=== PATIENT | female | born 1965 | race Two or more races ===

== ENCOUNTER 2019-06-04 13:17 | Inpatient (IN) | payer MEDICAID ==
[~2019-06-04] VITALS: Ht 162.6 cm; Wt 79.8 kg
--- NOTE | 2019-06-04 13:40 | NUR ---
ED Nurse Note: Pt walked in from home c/o throat pain/shortness of breath/vomiting x yesterday around 1600. Vital signs stable as documented.
[2019-06-04 13:47] VITALS: BP 150/86
--- NOTE | 2019-06-04 14:11 | NUR ---
ED Nurse Note: Pt in radiology
--- NOTE | 2019-06-04 14:57 | Diagnostic Imaging Report ---
Indication: Throat pain, suspected foreign body, shortness of breath, history of impacted swallowed chicken bone. Technique: Noncontrast spiral acquisitions obtained through the neck. No IV contrast utilized, reason not stated. Multiplanar reconstructions were generated. Total dose length product 364 mGycm. CTDIvol(s) 14 mGy. Radiation dose was minimized using automated exposure control Comparison: none Findings: Lack of IV contrast limits assessment. The nasopharynx, oropharynx, hypopharynx, larynx, and trachea are all unremarkable. However, in the upper mediastinum, there is a small focus of extraluminal gas projecting lateral to the right side of the esophagus and posterior trachea. No tracheal wall defect is demonstrated, however. This gas pocket measures approximately 14 x 6 x 9 mm. There is also a suggestion of a tiny extraluminal gas pocket adjacent to the esophagus more distally, at the level of the aortic arch. This measures only about 3 mm in diameter, is also located on the right side. No evidence of ingested impacted foreign body such as a chicken bone demonstrated. The included lung apices are clear. There is no prevertebral soft tissue swelling demonstrated. No definite focal fluid collection to suggest abscess. However, evaluation for such is very limited in the absence of IV contrast administration. No cervical mass or adenopathy demonstrated. Unremarkable salivary glands. There is evidence of multiple prior dental extractions as well as some possible dental caries. There is mild degenerative cervical spondylosis noted. The visualized intracranial structures are unremarkable. Impression: 14.6 x 9 mm pocket of extraluminal gas in the upper mediastinum adjacent to the trachea. Second tiny 3 mm pocket adjacent to the esophagus more distally. Given stated clinical history, this raises concern for prior esophageal microperforation. No definite radiopaque foreign body demonstrated in the upper aerodigestive tract. No definite cervical or mediastinal abscess. Note, however, that evaluation for such is severely limited in the absence of IV contrast demonstration Evidence of dental disease Findings/by phone with nurse bobby Samuels in the emergency room at the time of interpretation The CT scanner at [facility] is accredited by the [employer] and the scans are performed using protocols designed to limit radiation exposure to as low as reasonably achievable to attain images of sufficient resolution adequate for diagnostic evaluation.
[2019-06-04] MEDS ORDERED: Clindamycin 600mg 50 ML IVPB ONE (16:00)
[2019-06-04] MEDS ORDERED: Vancomycin 1.5 GM in NS 275 ML IVPB ONE (16:00)
[2019-06-04] MEDS ORDERED: Barium EZ HD MC PRN (16:00)
[2019-06-04] MEDS ORDERED: Barium EZ Gas II granules MC PRN (16:00)
[2019-06-04] MEDS ORDERED: Varibar Thin Liquid powder 148gm MC PRN (16:00)
--- NOTE | 2019-06-04 16:56 | Emergency Room Report ---
History of Present Illness General Chief Complaint: General Complaint Source: Patient (Esther Sanches) Present Illness HPI 53-year-old female with no known significant medical history here complaining of 1 day of having a chicken bone stuck in her throat. Patient with told urgent care earlier today prior to coming here and soft tissue neck x-ray was done the patient was told that the fishbone has been sideways and horizontal. Patient is in no distress, no drooling noted, no difficulty breathing or stridor noted. Patient speaking in full sentences, with stable vital signs. Complains of minimal gagging. Has been able to intake oral hydration as well as solid food however reports that she vomited 2 few times after eating tomato juice. Does not know what they are to read vomiting was secondary to tomato juice or possible blood. Denies fever and chills, chest pain, shortness of breath, palpitation, headache and dizziness at this time. Denies all other associated symptoms. Patient is currently not on any blood thinners. (Esther Sanches) Allergies: Coded Allergies: PENICILLINS (Verified Allergy, Unknown, 06/04/19) Patient History Past Medical History: see triage record Past Surgical History: unable to obtain Pertinent Family History: none Now: No Immunizations: UTD Reviewed Nursing Documentation: PMH: Agreed; PSxH: Agreed (Esther Sanches) Nursing Documentation-PMH Past Medical History: No History, Except For (Esther Sanches) Review of Systems All Other Systems: negative except mentioned in HPI (Esther Sanches) Physical Exam Vital Signs Date Time Temp Pulse Resp B/P (MAP) Pulse Ox O2 Delivery O2 Flow Rate FiO2 06/04/19 13:26 98.1 84 16 150/86 (107) 94 Sp02 EP Interpretation: reviewed, normal General Appearance: no apparent distress, alert, GCS 15, non-toxic Head: normocephalic, atraumatic Eyes: bilateral eye normal inspection, bilateral eye PERRL ENT: hearing grossly normal, normal pharynx, no angioedema, normal voice Neck: full range of motion, supple, thyroid normal, no meningismus, no bony tend, no carotid bruits, supple/symm/no masses Respiratory: chest non-tender, lungs clear, normal breath sounds, speaking full sentences Cardiovascular #1: regular rate, rhythm, no edema, no murmur Cardiovascular #2: 2+ carotid (R), 2+ carotid (L) Gastrointestinal: normal bowel sounds, non tender, soft, non-distended, no guarding, no rebound Genitourinary: no CVA tenderness Musculoskeletal: back normal, no calf tenderness Neurologic: alert, oriented Psychiatric: judgement/insight normal, memory normal, mood/affect normal, no suicidal/homicidal ideation Skin: no rash Lymphatic: no adenopathy (Esther Sanches) Procedures Critical Care Time Critical Care Time 50 minutes for critical findings concerning for deterioration and possible speaking to multiple consultants and outside resources not including any procedural time (Karey Weeks DO) Medical Decision Making PA Attestation All my diagnosis and treatment plans were reviewed ad discussed with my supervising physician Dr. Weeks (Esther Sanches) Diagnostic Impression: Primary Impression: Esophageal abnormality Additional Impression: Esophageal perforation ER Course 53-year-old female with no known significant medical history here complaining of 1 day of having a chicken bone stuck in her throat. Patient with told urgent care earlier today prior to coming here and soft tissue neck x-ray was done the patient was told that the fishbone has been sideways and horizontal. Patient is in no distress, no drooling noted, no difficulty breathing or stridor noted. Patient speaking in full sentences, with stable vital signs. Complains of minimal gagging. Has been able to intake oral hydration as well as solid food however reports that she vomited 2 few times after eating tomato juice. Does not know what they are to read vomiting was secondary to tomato juice or possible blood. Denies fever and chills, chest pain, shortness of breath, palpitation, headache and dizziness at this time. Denies all other associated symptoms. Patient is currently not on any blood thinners. Ddx considered but are not limited to: Esophageal perforation, esophageal irritation, tracheal perforation, respiratory distress Vital signs: are WNL, pt. is afebrile H&PE are most consistent with esophageal perforation ORDERS: CT neck soft tissue, CBC, CMP, PT PTT, chest x-ray ED INTERVENTIONS: None required at this time. Patient was admitted with diagnosis of esophageal perforation to under supervision of : Desi pt stable at time of admission (Esther Sanches) ER Course Please refer to the initial note for the history exam and presentation I was involved in the case early on in the work-up patient has CT imaging obtained which shows concerning findings of possible Microperforation With these findings [facility] was contacted I spoke to the, thoracic CT specialist who recommends transfer however Transfer center reports that they have no capacity and were not able to accept the patient On the recommendations patient was started on IV antibiotics and a esophagram was initiated Radiology does not see any obvious extravasation Patient continues on IV hydration and antibiotics contact is made again with [facility] and they report Continued inability to accept the patient [facility] was also contacted also reported no capacity for acceptance, Patient requires further evaluation and in-house surgical specialty consulted in the ER At this time no obvious signs of perforation and patient will continue with the care after prolonged stay in the emergency room Patient is requested for inpatient care with continued attempts of transfer for higher level of care secondary to the need for specialty consultation At the time of this dictation we are still not able to appropriately disposition the patient to higher level of care. In the best interest of the patient specialty consultation was made in the ER patient will be transferred to inpatient status and continue to attempt transfer Labs Test 06/04/19 16:30 White Blood Count 8.4 K/UL (4.8-10.8) Red Blood Count 5.04 M/UL (4.20-5.40) Hemoglobin 16.4 G/DL (12.0-16.0) Hematocrit 47.1 % (37.0-47.0) Mean Corpuscular Volume 93 FL (80-99) Mean Corpuscular Hemoglobin 32.6 PG (27.0-31.0) Mean Corpuscular Hemoglobin Concent 34.9 G/DL (32.0-36.0) Red Cell Distribution Width 10.5 % (11.6-14.8) Platelet Count 197 K/UL (150-450) Mean Platelet Volume 9.6 FL (6.5-10.1) Neutrophils (%) (Auto) 59.3 % (45.0-75.0) Lymphocytes (%) (Auto) 31.4 % (20.0-45.0) Monocytes (%) (Auto) 6.5 % (1.0-10.0) Eosinophils (%) (Auto) 2.1 % (0.0-3.0) Basophils (%) (Auto) 0.8 % (0.0-2.0) Prothrombin Time 11.6 SEC (9.30-11.50) Prothromb Time International Ratio 1.1 (0.9-1.1) Activated Partial Thromboplast Time 29 SEC (23-33) Sodium Level 143 MMOL/L (136-145) Potassium Level 4.4 MMOL/L (3.5-5.1) Chloride Level 109 MMOL/L (98-107) Carbon Dioxide Level 19 MMOL/L (21-32) Anion Gap 15 mmol/L (5-15) Blood Urea Nitrogen 12 mg/dL (7-18) Creatinine 0.7 MG/DL (0.55-1.30) Estimat Glomerular Filtration Rate > 60 mL/min (>60) Glucose Level 103 MG/DL (74-106) Calcium Level 9.1 MG/DL (8.5-10.1) Total Bilirubin 0.6 MG/DL (0.2-1.0) Aspartate Amino Transf (AST/SGOT) 37 U/L (15-37) Alanine Aminotransferase (ALT/SGPT) 21 U/L (12-78) Alkaline Phosphatase 86 U/L (46-116) Total Protein 8.1 G/DL (6.4-8.2) Albumin 3.9 G/DL (3.4-5.0) Globulin 4.2 g/dL Albumin/Globulin Ratio 0.9 (1.0-2.7) (Karey Weeks DO) Chest X-Ray Diagnostic Results Chest X-Ray Diagnostic Results : Chest X-Ray Ordered: Yes # of Views/Limited/Complete: 1 View Indication: Other EP Interpretation: Yes PA Xray: Interpretation reviewed, by supervising MD, and agrees with findings. Interpretation: no consolidation, no effusion, no pneumothorax, no acute cardiopulmonary disease Impression: No acute disease Electronically Signed by: Esther Cortez PA-C (Esther Sanches) Chest X-Ray Diagnostic Results : Chest X-Ray Ordered: Yes # of Views/Limited/Complete: 1 View Indication: Chest Pain EP Interpretation: Yes Interpretation: no consolidation, no effusion, no pneumothorax Impression: No acute disease Electronically Signed by: Karey Weeks DO (Karey Weeks DO) Other X-Ray Diagnostic Results Other X-Ray Diagnostic Results : X-Ray ordered: Soft tissue neck # of Views/Limited Vs Complete: 2 View Indication: Pain EP Interpretation: Yes Interpretation: no dislocation, no soft tissue swelling, no fractures Impression: No acute disease Electronically Signed by: Karey Weeks DO (Karey Weeks DO) CT/MRI/US Diagnostic Results CT/MRI/US Diagnostic Results : Imaging Test Ordered: CT soft tissue neck Impression Possible esophageal and tracheal perforation (Esther Sanches) CT/MRI/US Diagnostic Results : Impression CT neckImpression: 14.6 x 9 mm pocket of extraluminal gas in the upper mediastinum adjacent to the trachea. Second tiny 3 mm pocket adjacent to the esophagus more distally. Given stated clinical history, this raises concern for prior esophageal microperforation. No definite radiopaque foreign body demonstrated in the upper aerodigestive tract. No definite cervical or mediastinal abscess. Note, however, that evaluation for such is severely limited in the absence of IV contrast demonstration Evidence of dental disease (Karey Weeks DO) Last Vital Signs Date Time Temp Pulse Resp B/P (MAP) Pulse Ox O2 Delivery O2 Flow Rate FiO2 06/04/19 13:47 98.1 94 16 150/86 94 (Esther Sanches) Status: improved (Karey Weeks DO) Disposition: ADMITTED INPATIENT Condition: Serious Referrals: NOT CHOSEN IPA/,REFERRING (PCP) Esther Sanches Jun 04, 2019 16:56 Karey Weeks DO Jun 04, 2019 19:03
[2019-06-04 17:04] LABS: BASOPHILS % (AUTO) 0.8 % (0.0-2.0); EOSINOPHILS % (AUTO) 2.1 % (0.0-3.0); HEMATOCRIT 47.1 % (37.0-47.0); HEMOGLOBIN 16.4 G/DL (12.0-16.0); LYMPHOCYTES % (AUTO) 31.4 % (20.0-45.0); MEAN CORPUSCULAR VOLUME 93 FL (80-99); MONOCYTES % (AUTO) 6.5 % (1.0-10.0); NEUTROPHILS % (AUTO) 59.3 % (45.0-75.0); PLATELET COUNT 197 K/UL (150-450); RED BLOOD COUNT 5.04 M/UL (4.20-5.40); RED CELL DISTRIBUTION WIDTH 10.5 % (11.6-14.8); WHITE BLOOD COUNT 8.4 K/UL (4.8-10.8)
[2019-06-04 17:23] LABS: ANION GAP 15 mmol/L (5-15); BLOOD UREA NITROGEN 12 mg/dL (7-18); CALCIUM 9.1 MG/DL (8.5-10.1); CARBON DIOXIDE 19 MMOL/L (21-32); CHLORIDE 109 MMOL/L (98-107); CREATININE 0.7 MG/DL (0.55-1.30); POTASSIUM 4.4 MMOL/L (3.5-5.1); SODIUM 143 MMOL/L (136-145)
[2019-06-04 17:24] LABS: INR 1.1 (0.9-1.1)
[2019-06-04 17:25] VITALS: BP 142/89
--- NOTE | 2019-06-04 17:25 | Diagnostic Imaging Report ---
Indication: History of throat pain and foreign body ingestion Technique: One view of the chest Comparison: none Findings: Lungs and pleural spaces are clear. The heart size is upper limits of normal. The aorta is somewhat ectatic. Impression: Negative
--- NOTE | 2019-06-04 17:26 | Diagnostic Imaging Report ---
Indication: History of foreign body ingestion, sore throat Technique: 2 views of the neck with soft tissue technique Comparison: none Findings: No prevertebral soft tissue swelling. No radiopaque foreign body demonstrated. No epiglottic swelling, glottic narrowing, or hypopharyngeal distention. The bones are grossly unremarkable Impression: Negative
[2019-06-04 17:28] LABS: ALANINE AMINOTRANSFERASE 21 U/L (12-78); ALBUMIN 3.9 G/DL (3.4-5.0); ALBUMIN/GLOBULIN RATIO 0.9 (1.0-2.7); ALKALINE PHOSPHATASE 86 U/L (46-116); ASPARTATE AMINO TRANSFERASE 37 U/L (15-37); BILIRUBIN,TOTAL 0.6 MG/DL (0.2-1.0)
--- NOTE | 2019-06-04 17:48 | Diagnostic Imaging Report ---
INDICATION: History of lodged chicken bone, evidence of possible esophageal perforation on recent neck CT TECHNIQUE: Patient ingested water-soluble contrast and live fluoroscopic imaging was performed in the region of abnormality demonstrated on recent neck CT Fluoroscopy time: 54.1 seconds Total dose: 0.87758 mGym2 Total number of images: 3 COMPARISON: Neck CT of earlier the same day FINDINGS: Exam is very limited, due to inability of the patient to cooperate optimally, constant moving, and retching immediately after swallowing. Normal esophageal motility is demonstrated. No gross contrast extravasation is demonstrated. IMPRESSION: Very limited exam. No definite contrast extravasation demonstrated
--- NOTE | 2019-06-04 18:31 | Consultation ---
History of Present Illness General Date patient seen: Jun 04, 2019 Reason for Hospitalization: General Complaint Present Illness HPI This is a very pleasant 53-year-old female who presents [facility] recently after swallowing a chicken bone concern for complication complaining of pain, nausea, emesis. Patient states over the last 24 hours the pain has become more significant and she is unable to hold down any food and continues to have intermittent nausea and emesis. Pain is described as a sharp 8 out of 10 pain in the neck and feels as if the chicken bone is still stuck there. CT ordered and as below. Surgery called to evaluate and assist with care. Patient seen in the emergency department, patient evaluated, chart reviewed. Findings were discussed with the patient and her daughters at bedside in detail and imaging findings labs and vitals were discussed as well as the etiology of the radiological findings and care plan. Allergies: Coded Allergies: PENICILLINS (Verified Allergy, Unknown, 06/04/19) Patient History History Provided By: Patient, Family Member, Medical Record, PMD Healthcare decision maker Resuscitation status Advanced Directive on File Past Medical/Surgical History Past Medical/Surgical History: (1) Esophageal tear (2) Esophageal perforation Review of Systems Review of Symptoms General ROS: no weight loss or fever Psychological ROS: no depression or mood changes, no memory loss Ophthalmic ROS: no visual changes or eye irritation ENT ROS: no nasal congestion, hearing loss, dizziness throat pain Allergy and Immunology ROS: no allergic symptoms or urticaria Hematological and Lymphatic ROS: no swollen glands, unusual bleeding or bruising Endocrine ROS: no polyuria, polydipsia, weight changes, temperature intolerance Respiratory ROS: no cough, shortness of breath, or wheezing Cardiovascular ROS: no chest pain or dyspnea on exertion Gastrointestinal ROS: denies abdominal pain, bright red blood in stool. Musculoskeletal ROS: no myalgias or arthralgias Neurological ROS: no TIA or stroke symptoms Dermatological ROS: no new or changing skin lesions, rashes or pruritis Physical Exam Physical Exam General appearance: alert, cooperative, no distress, appears stated age Head: Normocephalic, without obvious abnormality, atraumatic Eyes: conjunctivae/corneas clear. PERRL, EOM's intact. Fundi benign Throat: Lips, mucosa, and tongue normal. Teeth and gums normal tender on palpation of the neck Neck: supple, symmetrical, trachea midline, no adenopathy, thyroid: not enlarged, symmetric, no tenderness/mass/nodules, no carotid bruit and no JVD Lungs: clear to auscultation bilaterally Heart: regular rate and rhythm, S1, S2 normal, no murmur, click, rub or gallop Abdomen: soft, non-tender. Bowel sounds normal. No masses, no organomegaly Extremities: extremities normal, atraumatic, no cyanosis or edema Pulses: 2+ and symmetric Skin: Skin color, texture, turgor normal. No rashes or lesions Neurologic: Grossly normal Last 24 Hour Vital Signs Date Time Temp Pulse Resp B/P (MAP) Pulse Ox O2 Delivery O2 Flow Rate FiO2 06/04/19 13:47 98.1 94 16 150/86 94 06/04/19 13:47 84 16 06/04/19 13:26 98.1 84 16 150/86 (107) 94 Laboratory Tests Test 06/04/19 16:30 White Blood Count 8.4 K/UL (4.8-10.8) Red Blood Count 5.04 M/UL (4.20-5.40) Hemoglobin 16.4 G/DL (12.0-16.0) H Hematocrit 47.1 % (37.0-47.0) H Mean Corpuscular Volume 93 FL (80-99) Mean Corpuscular Hemoglobin 32.6 PG (27.0-31.0) H Mean Corpuscular Hemoglobin Concent 34.9 G/DL (32.0-36.0) Red Cell Distribution Width 10.5 % (11.6-14.8) L Platelet Count 197 K/UL (150-450) Mean Platelet Volume 9.6 FL (6.5-10.1) Neutrophils (%) (Auto) 59.3 % (45.0-75.0) Lymphocytes (%) (Auto) 31.4 % (20.0-45.0) Monocytes (%) (Auto) 6.5 % (1.0-10.0) Eosinophils (%) (Auto) 2.1 % (0.0-3.0) Basophils (%) (Auto) 0.8 % (0.0-2.0) Prothrombin Time 11.6 SEC (9.30-11.50) H Prothromb Time International Ratio 1.1 (0.9-1.1) Activated Partial Thromboplast Time 29 SEC (23-33) Sodium Level 143 MMOL/L (136-145) Potassium Level 4.4 MMOL/L (3.5-5.1) Chloride Level 109 MMOL/L (98-107) H Carbon Dioxide Level 19 MMOL/L (21-32) L Anion Gap 15 mmol/L (5-15) Blood Urea Nitrogen 12 mg/dL (7-18) Creatinine 0.7 MG/DL (0.55-1.30) Estimat Glomerular Filtration Rate > 60 mL/min (>60) Glucose Level 103 MG/DL (74-106) Calcium Level 9.1 MG/DL (8.5-10.1) Total Bilirubin 0.6 MG/DL (0.2-1.0) Aspartate Amino Transf (AST/SGOT) 37 U/L (15-37) Alanine Aminotransferase (ALT/SGPT) 21 U/L (12-78) Alkaline Phosphatase 86 U/L (46-116) Total Protein 8.1 G/DL (6.4-8.2) Albumin 3.9 G/DL (3.4-5.0) Globulin 4.2 g/dL Albumin/Globulin Ratio 0.9 (1.0-2.7) L Height (Feet): 5 Height (Inches): 5.00 Weight (Pounds): 180 Medications Current Medications Medications (Trade) Dose Ordered Sig/Glenn Route PRN Reason Start Time Stop Time Status Last Admin Dose Admin Barium Sulfate (Barium EZ Gas II) 1 ea NOW PRN Radiology Procedure 06/04/19 16:00 06/07/19 15:58 Barium Sulfate (Barium EZ HD) 1 ea NOW PRN Radiology Procedure 06/04/19 16:00 06/07/19 15:58 Barium Sulfate (Varibar Thin Liquid powder) 148 gm NOW PRN Radiology Procedure 06/04/19 16:00 06/07/19 15:58 Assessment/Plan Problem List: (1) Esophageal tear Assessment & Plan: This is a 53-year-old female who presented to the emergency department [facility] complaining of throat pain nausea vomiting after swallowing a chicken bone. Feels as if it still stuck in her throat and is unable to tolerate oral intake and continues to throw up and has intermittent nausea. States pain in the neck. Afebrile, hemodynamic is stable, labs okay CT as below Patient is currently stable but does have tenderness in the neck as a concerning CT. She is unable to tolerate oral intake and has intermittent episodes of nausea and vomiting. She had a esophagram which did not show any extravasation. Given patient's etiology and above findings strongly recommend observation. In the event of complications such as delayed esophageal perforation infection mediastinitis, etc. patient would strongly benefit at a center with thoracic capabilities. Unfortunately we do not have a throat surgeon foreign law consultant here and limitations on chest surgery. Higher level of care would be strongly recommended in the event patient's condition deteriorates though unlikely. If unable to transfer patient must be admitted here for observation care and management. N.p.o., IV fluids, IV antibiotics. Will follow with serial examinations. Will be very difficult to manage in the event complicated but will be available to assist to the best of my capabilities. Thank you for let me participate in patient's care The nasopharynx, oropharynx, hypopharynx, larynx, and trachea are all unremarkable. However, in the upper mediastinum, there is a small focus of extraluminal gas projecting lateral to the right side of the esophagus and posterior trachea. No tracheal wall defect is demonstrated, however. This gas pocket measures approximately 14 x 6 x 9 mm. There is also a suggestion of a tiny extraluminal gas pocket adjacent to the esophagus more distally, at the level of the aortic arch. This measures only about 3 mm in diameter, is also located on the right side. No evidence of ingested impacted foreign body such as a chicken bone demonstrated. The included lung apices are clear. There is no prevertebral soft tissue swelling demonstrated. No definite focal fluid collection to suggest abscess. However, evaluation for such is very limited in the absence of IV contrast administration. No cervical mass or adenopathy demonstrated. Unremarkable salivary glands. There is evidence of multiple prior dental extractions as well as some possible dental caries. There is mild degenerative cervical spondylosis noted. The visualized intracranial structures are unremarkable. Impression: 14.6 x 9 mm pocket of extraluminal gas in the upper mediastinum adjacent to the trachea. Second tiny 3 mm pocket adjacent to the esophagus more distally. Given stated clinical history, this raises concern for prior esophageal microperforation. No definite radiopaque foreign body demonstrated in the upper aerodigestive tract. No definite cervical or mediastinal abscess. Note, however, that evaluation for such is severely limited in the absence of IV contrast demonstration Evidence of dental disease ICD Codes: S11.21XA - Laceration without foreign body of pharynx and cervical esophagus, initial encounter SNOMED: 496733359 (2) Esophageal abnormality ICD Codes: K22.9 - Disease of esophagus, unspecified SNOMED: 16391820 (3) Esophageal perforation Assessment & Plan: FINDINGS: Exam is very limited, due to inability of the patient to cooperate optimally, constant moving, and retching immediately after swallowing. Normal esophageal motility is demonstrated. No gross contrast extravasation is demonstrated. IMPRESSION: Very limited exam. No definite contrast extravasation demonstrated ICD Codes: K22.3 - Perforation of esophagus SNOMED: 39702316 Pankaj Galvan Jun 04, 2019 18:31
[2019-06-04] MEDS ORDERED: Morphine Sulfate 2mg/ml Inj(IV/IM USE ONLY) IVP ONE (19:00)
[2019-06-04] MEDS ORDERED: Ketorolac 30mg Inj IV ONE (19:00)
--- NOTE | 2019-06-04 19:00 | NUR ---
ED Nurse Note: Vancomycin stopped because pt was becoming very itchy. ED MD aware.
--- NOTE | 2019-06-04 19:28 | NUR ---
ED Nurse Note: Report given to JA Macias. Plan of care endorsed.
[2019-06-04 20:00] VITALS: BP 150/89
--- NOTE | 2019-06-04 20:00 | NUR ---
ED Nurse Note: Recieved report to resume care, pt in room sitting on bed conversing with daughter, NAD noted at this time, no sob or labored breathing, no excessive swallowing noted, pt has patent saline lock, will resume care and continue to monitor while waiting for transfer info.
--- NOTE | 2019-06-04 20:45 | NUR ---
ED Nurse Note: Pt no longer being transferred and going to floor here for admission, pt is awake and alert, oriented x 4, no changes or distress noted, pt is ambulatory, daughter at bedside, no sob or labored breathing, IV site patent, report called to floor nurse JA Garay, NAD noted during pt transport to unit via wheelchair with er-tech and daughter, pt has all belongings.
--- NOTE | 2019-06-04 21:00 | NUR ---
received patient per wheelchair accompanied by the ER STAFF with iv line on the right hand. with minimal c/o pain on the throat but claimed as bearable. with daughter on the bedside. oriented to room set-up. paged dr. ravi for admission orders, awaiting for call back. all belongings on the bedside and signed by the daughter. bed locked and in lowest position. call light and light button within easy reach. vital signs of 150/98 mmhg. 79 bpm, 18cpm, 96%, 98.9F. Addendum: 06/04/19 at 2255 by Marbella Bob RN NURSE NOTES:
--- NOTE | 2019-06-04 22:00 | NUR ---
NURSE NOTES: Received a phone call from dr. ravi to be on NPO and to continue ER orders. charge nurse made aware
[2019-06-04] MEDS ORDERED: Morphine Sulfate 2mg/ml Inj(IV/IM USE ONLY) IVP PRN (22:45)
[2019-06-04] MEDS ORDERED: Ketorolac 30mg Inj IV PRN (22:45)
[2019-06-04] MEDS: Vancomycin 750 MG in NS 275 ML IVPB SCH (23:45)
[2019-06-05] VITALS: BP 160/95
[2019-06-05 04:00] VITALS: BP 128/76
[2019-06-05] MEDS: Clindamycin 600mg 50 ML IV SCH ×2 (05:37→13:32)
--- NOTE | 2019-06-05 07:22 | NUR ---
HAND-OFF: Report given to indira salgado.
--- NOTE | 2019-06-05 07:45 | NUR ---
NURSE NOTES: Received report from Sherry RN, pt a/a/o x4 laying in bed with no signs of distress or other issues at this time. IV on the right hand gauge#20 heplock. call light within reach, bed in lowest position, side rales up x2. daughter at bedside. I will f/u as needed.
[2019-06-05 08:00] VITALS: BP 141/87
[2019-06-05] MEDS: Vancomycin 750 MG in NS 275 ML IVPB SCH ×2 (08:26→15:05)
[2019-06-05 12:00] VITALS: BP 139/90
--- NOTE | 2019-06-05 13:07 | Surgery Progress Note ---
Surgery Progress Note Subjective Additional Comments Patient seen and examined bedside with no acute events. Family at bedside. States that she feels significantly better and pain is significantly improved. Is able to swallow without significant difficulty. No nausea vomiting fever chills. She has been otherwise comfortable and without complaints since yesterday evening. States no longer feels a getting stuck in her throat Objective Last 24 Hour Vital Signs Date Time Temp Pulse Resp B/P (MAP) Pulse Ox O2 Delivery O2 Flow Rate FiO2 06/05/19 12:00 98.0 20 139/90 (106) 95 06/05/19 09:00 Room Air 06/05/19 08:00 99.0 18 141/87 (105) 96 06/05/19 04:00 98.7 17 128/76 (93) 97 06/05/19 03:54 98.7 06/05/19 00:00 99.9 81 18 160/95 (116) 97 06/04/19 22:31 Room Air 06/04/19 20:55 98.0 92 16 142/89 94 06/04/19 20:00 98.9 79 18 150/89 (109) 96 06/04/19 19:46 98.0 06/04/19 19:45 98.0 06/04/19 17:25 98.0 92 16 142/89 94 06/04/19 13:47 98.1 94 16 150/86 94 06/04/19 13:47 84 16 06/04/19 13:26 98.1 84 16 150/86 (107) 94 I&O Intake and Output 06/04/19 06/05/19 19:00 07:00 Intake Total 0 ml 368 ml Balance 0 ml 368 ml Intake Oral 0 ml IV Total 368 ml # Voids 2 Cardiovascular: RSR Respiratory: clear Abdomen: soft, flat, non-tender, present bowel sounds Extremities: no edema, no tenderness, no cyanosis Laboratory Tests Test 06/04/19 16:30 White Blood Count 8.4 K/UL (4.8-10.8) Red Blood Count 5.04 M/UL (4.20-5.40) Hemoglobin 16.4 G/DL (12.0-16.0) H Hematocrit 47.1 % (37.0-47.0) H Mean Corpuscular Volume 93 FL (80-99) Mean Corpuscular Hemoglobin 32.6 PG (27.0-31.0) H Mean Corpuscular Hemoglobin Concent 34.9 G/DL (32.0-36.0) Red Cell Distribution Width 10.5 % (11.6-14.8) L Platelet Count 197 K/UL (150-450) Mean Platelet Volume 9.6 FL (6.5-10.1) Neutrophils (%) (Auto) 59.3 % (45.0-75.0) Lymphocytes (%) (Auto) 31.4 % (20.0-45.0) Monocytes (%) (Auto) 6.5 % (1.0-10.0) Eosinophils (%) (Auto) 2.1 % (0.0-3.0) Basophils (%) (Auto) 0.8 % (0.0-2.0) Prothrombin Time 11.6 SEC (9.30-11.50) H Prothromb Time International Ratio 1.1 (0.9-1.1) Activated Partial Thromboplast Time 29 SEC (23-33) Sodium Level 143 MMOL/L (136-145) Potassium Level 4.4 MMOL/L (3.5-5.1) Chloride Level 109 MMOL/L (98-107) H Carbon Dioxide Level 19 MMOL/L (21-32) L Anion Gap 15 mmol/L (5-15) Blood Urea Nitrogen 12 mg/dL (7-18) Creatinine 0.7 MG/DL (0.55-1.30) Estimat Glomerular Filtration Rate > 60 mL/min (>60) Glucose Level 103 MG/DL (74-106) Calcium Level 9.1 MG/DL (8.5-10.1) Total Bilirubin 0.6 MG/DL (0.2-1.0) Aspartate Amino Transf (AST/SGOT) 37 U/L (15-37) Alanine Aminotransferase (ALT/SGPT) 21 U/L (12-78) Alkaline Phosphatase 86 U/L (46-116) Total Protein 8.1 G/DL (6.4-8.2) Albumin 3.9 G/DL (3.4-5.0) Globulin 4.2 g/dL Albumin/Globulin Ratio 0.9 (1.0-2.7) L Plan Problems: (1) Esophageal tear Assessment & Plan: This is a 53-year-old female who presented to the emergency department [facility] complaining of throat pain nausea vomiting after swallowing a chicken bone. Feels as if it still stuck in her throat and is unable to tolerate oral intake and continues to throw up and has intermittent nausea. States pain in the neck. Afebrile, hemodynamic is stable, labs okay CT as below Patient is currently stable but does have tenderness in the neck as a concerning CT. She is unable to tolerate oral intake and has intermittent episodes of nausea and vomiting. She had a esophagram which did not show any extravasation. Given patient's etiology and above findings strongly recommend observation. In the event of complications such as delayed esophageal perforation infection mediastinitis, etc. patient would strongly benefit at a center with thoracic capabilities. Unfortunately we do not have a throat surgeon electronic publishing specialist here and limitations on chest surgery. Higher level of care would be strongly recommended in the event patient's condition deteriorates though unlikely. If unable to transfer patient must be admitted here for observation care and management. N.p.o., IV fluids, IV antibiotics. Will follow with serial examinations. Will be very difficult to manage in the event complicated but will be available to assist to the best of my capabilities. Thank you for let me participate in patient's care The nasopharynx, oropharynx, hypopharynx, larynx, and trachea are all unremarkable. However, in the upper mediastinum, there is a small focus of extraluminal gas projecting lateral to the right side of the esophagus and posterior trachea. No tracheal wall defect is demonstrated, however. This gas pocket measures approximately 14 x 6 x 9 mm. There is also a suggestion of a tiny extraluminal gas pocket adjacent to the esophagus more distally, at the level of the aortic arch. This measures only about 3 mm in diameter, is also located on the right side. No evidence of ingested impacted foreign body such as a chicken bone demonstrated. The included lung apices are clear. There is no prevertebral soft tissue swelling demonstrated. No definite focal fluid collection to suggest abscess. However, evaluation for such is very limited in the absence of IV contrast administration. No cervical mass or adenopathy demonstrated. Unremarkable salivary glands. There is evidence of multiple prior dental extractions as well as some possible dental caries. There is mild degenerative cervical spondylosis noted. The visualized intracranial structures are unremarkable. Impression: 14.6 x 9 mm pocket of extraluminal gas in the upper mediastinum adjacent to the trachea. Second tiny 3 mm pocket adjacent to the esophagus more distally. Given stated clinical history, this raises concern for prior esophageal microperforation. No definite radiopaque foreign body demonstrated in the upper aerodigestive tract. No definite cervical or mediastinal abscess. Note, however, that evaluation for such is severely limited in the absence of IV contrast demonstration Evidence of dental disease (2) Esophageal abnormality (3) Esophageal perforation Assessment & Plan: FINDINGS: Exam is very limited, due to inability of the patient to cooperate optimally, constant moving, and retching immediately after swallowing. Normal esophageal motility is demonstrated. No gross contrast extravasation is demonstrated. IMPRESSION: Very limited exam. No definite contrast extravasation demonstrated Additional Comments Patient seen examined bedside. Pain improved if not resolved at this point No longer has foreign body sensation back of her throat Swallowing well Physical examination benign able to palpate neck without any tenderness or discomfort given clear liquid diet and Tolerated Afebrile, hemodynamically stable, improved Discharge planning Patient instructed to remain on soft and comfortable diet slowly advance as tolerated If fevers pain nausea vomiting or worsening condition return to emerge department right away Outpatient follow-up with PCP Pankaj Galvan Jun 05, 2019 13:07
[2019-06-05 16:00] VITALS: BP 138/89
[2019-06-05] MEDS ORDERED: LEVAQUIN500 MG ORAL (16:03)
[2019-06-05] MEDS ORDERED: BACTRIM DS TAB1 EAC1 ORAL (16:04)
[2019-06-05] MEDS ORDERED: Tubing IV Secondary IV ONE (18:14)
[2019-06-05] MEDS ORDERED: NS 500ML ONE (18:14)
--- NOTE | 2019-06-05 18:15 | NUR ---
NURSE NOTES: Received order to dc home. discharge instructions and belongings list given to patient. Iv removed prior to d/c. pt verbalized understanding that she will need to remain clear liquid diet x1 and to advance as tolerated. also RX for ABX given to patient she stated that she will fill it out at her regular pharmacy. pt left the floor with no signs of distress or other issues at this time. I will f/u as needed.
--- NOTE | 2019-06-05 19:00 | History and Physical Report ---
DATE OF ADMISSION: 06/04/2019 HISTORY OF PRESENT ILLNESS: This is an elderly 53-year-old old female came to the emergency room for having choking sensation, nausea, and vomiting. The patient was found to have an esophageal tear. The patient is currently doing better, tolerating diet. PAST MEDICAL HISTORY: None. ALLERGIES: None. FAMILY HISTORY: Noncontributory. SOCIAL HISTORY: Lives with her daughter. Denies any smoking or drinking. PHYSICAL EXAMINATION: VITAL SIGNS: Blood pressure 128/76, pulse 97. No fever. CHEST: Bilaterally clear. CARDIOVASCULAR: Regular rhythm. ABDOMEN: Soft. EXTREMITIES: No edema. GENITOURINARY: Examination deferred. LABORATORY DATA: White counts are 8.4, hemoglobin 16, hematocrit 47, platelets are 197. Chemistry panel is unremarkable. ASSESSMENT AND PLAN: Esophageal tear. Recommended soft diet. GI consult. Continue current treatment. Discussed with daughter . Surgery is on consult. Ruperto Guzmán M.D. DR: CHINO JOB#: [id number] CC:
--- NOTE | 2019-06-06 09:06 | NUR ---
CASE MANAGEMENT: INITIAL REVIEW 53YR OLD FEMALE FROM HOME CC: GENERAL COMPLAINT SI:ESOPHAGEAL ABNORMALITY . ESOPHAGEAL PERFORATION 98.1 84 16 150/86 94% ON RA H/H 16.4/47.1 PT 11.6 CL-109 CO2 19 IS:IV VANCOMYCIN X1 IV CLINDAMYCIN X1 IV TORADOL X1 IV MORPHINE SULFATE X1 IV ZOFRAN X1 NECK X-RAY CT NECK CHEST X-RAY ESOPHAGUS X-RAY \:3E MED SURG UNIT PLAN: CLEAR LIQ DIET
--- NOTE | 2019-06-10 10:27 | Discharge Summary ---
Discharge Summary Discharge Summary _ DATE OF ADMISSION: 06/04/2019 DATE OF DISCHARGE: 06/05/2019 DISCHARGED BY: Dr. Guzmán REASON FOR ADMISSION: 53 years old female with no significant past medical history , presented with complaint of chicken bone , stuck in her throat for 1 day. Patient went to urgent care and was told to come to emergency room for further evaluation. Patient not appeared to be in respiratory distress: no drooling , no difficulty breathing, no stridor. Patient was able to speak in full sentences. Vital signs were stable. Soft tissue neck x-ray was negative. No evidence of foreign body was demonstrated. CT scan of the neck revealed 14.6 x 9 mm pocket of extraluminal gas in the upper mediastinum adjacent to the trachea , second tiny 3 mm pocket adjacent to esophagus , more distally. Given clinical history , these findings raised concern for possible esophageal microperforation. No definite cervical or mediastinal abscess. No definite radiopaque foreign body was demonstrated. Chest x-ray revealed no acute cardiopulmonary pathology. Laboratory work-up was unremarkable. Patient admitted for possible esophageal perforation. CONSULTANTS: surgery Dr. Galvan [facility]RSE: Patient admitted to medical surgical floor. Surgeon consulted. Esophageal x-ray revealed normal esophageal motility. No gross contrast extravasation was demonstrated. Patient swallowed without difficulties. No nausea or vomiting. No fever or chills. Patient provided with soft diet and was able to tolerate it. Physical examination was benign . patient remained hemodynamically stable. Surgeon cleared patient for discharge . Foreign body sensation in her throat and pain resolved . Patient was stable for discharge home. Due to rapid and unexpected improvement in patient condition, patient was discharged in 1 day. FINAL DIAGNOSES: Esophageal tear Esophageal perforation Esophageal abnormality DISCHARGE MEDICATIONS: See Medication Reconciliation list. DISCHARGE INSTRUCTIONS: Patient was discharged home. Follow-up with a primary care provider in 1 week I have been assigned to dictate discharge summary for this account. I was not involved in the patient's management. Roxy Dickinson NP Jun 10, 2019 10:27
== END 2019-06-05 18:15 | disposition home or self-care (01) | DRG 370 ==
LOC: EMR 15:40 → 3E 19:35 → EDBEDREQ 20:11
DX: S27.818A Other injury of esophagus (thoracic part), initial encounter (principal); T18.128A Food in esophagus causing other injury, initial encounter; Z88.0 Allergy status to penicillin; K22.9 Disease of esophagus, unspecified; R11.2 Nausea with vomiting, unspecified
CPT/HCPCS: 36415; 70360; 70490; 71045; 74220; 80053; 85025; 85610; 85730; 86850; 86900; 86901; 96365; 96366; 96368; 96375; 99291; J2405; S0077